=== PATIENT | female | born 1950 | race African-American/Black ===

== ENCOUNTER 2020-01-29 19:11 | Emergency (ER) | payer MEDICARE, MEDICAID ==
[~2020-01-29] VITALS: Ht 167.6 cm; Wt 149.7 kg
--- NOTE | 2020-01-29 19:27 | Emergency Room Report ---
History of Present Illness General Chief Complaint: Lower Extremity Injury Source: Patient Present Illness HPI Patient is a 69-year-old female past medical history of hypertension and obesity who presents to the ER complaining of right knee pain. Patient states that she slipped on stairs yesterday landing onto her right knee. She complains of pain to the knee and states that she is tried taking Advil and tramadol for the pain. She denies any head trauma or loss of consciousness. She states that she is able to ambulate but that it is painful on her knee. Allergies: Coded Allergies: No Known Allergies (Verified Allergy, Unknown, 06/02/10) COVID-19 Screening Contact w/high risk pt: No Experienced COVID-19 symptoms?: No COVID-19 Testing performed DENTAL INSTRUCTOR: No Patient History Now: No Reviewed Nursing Documentation: PMH: Agreed; PSxH: Agreed Nursing Documentation-PMH Hx Cardiac Problems: No Hx Hypertension: Yes Hx Pacemaker: No Hx Asthma: Yes Hx COPD: No Hx Diabetes: No Hx Cancer: No Hx Gastrointestinal Problems: No Hx Dialysis: No History Of Psychiatric Problem: No Hx Neurological Problems: No Hx Cerebrovascular Accident: No Hx Seizures: No Review of Systems All Other Systems: negative except mentioned in HPI Physical Exam Vital Signs Date Time Temp Pulse Resp B/P (MAP) Pulse Ox O2 Delivery O2 Flow Rate FiO2 01/29/20 19:14 98.8 71 22 112/72 (85) 95 Room Air Sp02 EP Interpretation: reviewed, normal General Appearance: no apparent distress, alert, GCS 15, non-toxic Head: normocephalic, atraumatic Eyes: bilateral eye normal inspection, bilateral eye PERRL ENT: hearing grossly normal, normal pharynx, no angioedema, normal voice Neck: full range of motion, supple/symm/no masses Respiratory: chest non-tender, lungs clear, normal breath sounds, speaking full sentences Cardiovascular #1: regular rate, rhythm, no edema Gastrointestinal: normal bowel sounds, non tender, soft, non-distended, no guarding, no rebound Rectal: deferred Genitourinary: no CVA tenderness Musculoskeletal: normal range of motion, other - Right anterior knee pain with small amount of edema no ecchymosis normal range of motion warm extremity no obvious deformity able to ambulate 2+ pedal pulses 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 Patient given an Anthony wrap as well as a cane. She has been advised to follow-up with her primary care physician for orthopedic referral for possible MRI. After discussing risks and benefits of further diagnostics, treatment plans, as well as indications for and risks of admission, the patient is agreeable to being discharged home. I have explained that their evaluation and treatment in the emergency department today is an important step towards them achieving better health but that their evaluation today is not intended to replace further evaluation and treatment by a physician in their local clinic. I have explained that while the current findings suggest no immediate life threatening emergency they will require further evaluation and treatment by a physician of their choice in their area. They understand that it will be necessary for them to review the final reports of their ED visit with their clinic physician. We have reviewed indications for return to the Emergency Department. I have explained that additional time may need to pass and/or additional testing as an outpatient may be necessary before a definitive diagnosis can be made. They tell me they are willing to follow up as instructed within the timeframe I recommend. They appear to understand what we discussed. Additionally they understand that if they are unable to be seen by an outpatient physician they are welcome, and in fact should, return to the Emergency Department for a repeat evaluation. The patient is stable at time of discharge. Other X-Ray Diagnostic Results Other X-Ray Diagnostic Results : X-Ray ordered: R knee # of Views/Limited Vs Complete: 4 View Indication: Pain EP Interpretation: Yes Interpretation: no dislocation, no soft tissue swelling, other - possible anterior medial tibial plateau fracture only seen on one view. Impression: Other - Possible tibial plateau fracture Last Vital Signs Date Time Temp Pulse Resp B/P (MAP) Pulse Ox O2 Delivery O2 Flow Rate FiO2 01/29/20 19:14 98.8 71 22 112/72 (85) 95 Room Air Disposition: HOME, SELF-CARE Condition: Stable Scripts Naproxen* (NAPROXEN*) 375 Mg Tablet. 375 MG ORAL TWICE A DAY, #30 TAB Prov: Nicolette Saldana M.D. 01/29/20 Additional Instructions: The patient was provided with discharge instructions, notified to follow-up with a primary care doctor and or specialist in the next 24-48 hours, and to return to the ED if they have worsening of their symptoms. Please note that this report is being documented using [employer] technology. This can lead to erroneous entry secondary to incorrect interpretation by the dictating instrument. Nicolette Saldana M.D. Jan 29, 2020 19:26
[2020-01-29] MEDS ORDERED: Ketorolac 30mg Inj IM ONE (19:30)
--- NOTE | 2020-01-29 20:08 | Diagnostic Imaging Report ---
EXAM: XR Right Knee, 3 Views CLINICAL HISTORY: FALL TECHNIQUE: Three views of the right knee. COMPARISON: None available. FINDINGS: Bones/joints: Seen only on the oblique view, there is a subtle cortical irregularity along the anteromedial tibial plateau. Diffuse osteopenia. Tricompartmental joint space narrowing and mild osteophytosis. No acute fracture. No dislocation. Soft tissues: Unremarkable. Vasculature: A few incidental phleboliths are noted. Other findings: Small ossific density overlying Hoffa's fat pad on the lateral radiograph. IMPRESSION: 1. Findings suspicious for anteromedial tibial plateau fracture, which is seen only on one view. May also represent early marginal osteophyte. Recommend correlation with physical exam for location of pain and consider CT for more evaluation as clinically indicated. 2. Possible infrapatellar intra-articular body. 3. Mild to moderate tricompartmental osteoarthritis.
--- NOTE | 2020-01-29 20:56 | Diagnostic Imaging Report ---
EXAM: CT Right Lower Extremity Without Intravenous Contrast CLINICAL HISTORY: PAIN TECHNIQUE: Axial computed tomography images of the right lower extremity without intravenous contrast. CTDI is 6.1 mGy and DLP is 232.9 mGy-cm. One or more of the following dose reduction techniques were used: automated exposure control, adjustment of the mA and/or kV according to patient size, use of iterative reconstruction technique. COMPARISON: Radiograph dated 01/29/2020 FINDINGS: Bones/joints: Tricompartmental joint space narrowing is noted, most prominent within the medial tibiofemoral compartment. There is subchondral sclerosis and cystic change. Tricompartmental osteophytosis is demonstrated. Within the Hoffa's fat pad, there is an 8 x 9 mm intra- articular ossific body. No acute fracture. No dislocation. Soft tissues: Unremarkable. Vasculature: A few phleboliths are noted. IMPRESSION: 1. No acute osseous abnormality. 2. Moderate tricompartmental osteoarthritis, most prominent within the medial tibiofemoral compartment. 3. 9 mm intra-articular infrapatellar ossific body.
[2020-01-29 21:00] VITALS: BP 137/84
[2020-01-29] MEDS ORDERED: NAPROXEN375 M2 ORAL (21:00)
[2020-01-29 21:15] VITALS: BP 137/84
== END 2020-01-29 21:15 | disposition home or self-care (01) ==
LOC: EMR 19:30
DX: S83.91XA Sprain of unspecified site of right knee, initial encounter (principal); W01.0XXA Fall on same level from slipping, tripping and stumbling without subsequent striking against object, initial encounter; Y92.9 Unspecified place or not applicable; I10 Essential (primary) hypertension
CPT/HCPCS: 73562; 73700; 96372; 99284; J1885